=== PATIENT | male | born 1990 | race Caucasian/White ===

== ENCOUNTER 2017-11-10 16:34 | Inpatient (IN) ==
[2017-11-10] MEDS ORDERED: ONDANSETRON 4 MG/2 ML VIAL IV PRN (17:47)
[2017-11-10] MEDS ORDERED: TEMAZEPAM 15 MG CAPSULE PO PRN (17:47)
[2017-11-10] MEDS ORDERED: diphenhydrAMINE CAP 25 MG CAPSULE PO PRN (17:47)
[2017-11-10] MEDS: ceFAZolin 1,000 MG in SYRINGE 1 EACH IV SCH (19:01)
[2017-11-10] MEDS: CIPROFLOXACIN INJ 400 MG in PREMIX 1 EACH IV SCH (19:06)
[2017-11-10] MEDS: IBUPROFEN 400 MG TABLET PO PRN (19:07)
[2017-11-10] MEDS: ACETAMINOPHEN 325 MG TABLET PO PRN (20:32)
[2017-11-11] MEDS: ACETAMINOPHEN 325 MG TABLET PO PRN ×3 (01:00→22:39)
[2017-11-11] MEDS: ceFAZolin 1,000 MG in SYRINGE 1 EACH IV SCH ×3 (03:02→18:20)
[2017-11-11] MEDS: CIPROFLOXACIN INJ 400 MG in PREMIX 1 EACH IV SCH ×2 (06:35→18:25)
[2017-11-11] MEDS: IBUPROFEN 400 MG TABLET PO PRN (10:05)
[2017-11-12] MEDS: ceFAZolin 1,000 MG in SYRINGE 1 EACH IV SCH ×3 (02:10→17:57)
[2017-11-12] MEDS: CIPROFLOXACIN INJ 400 MG in PREMIX 1 EACH IV SCH ×2 (05:51→18:00)
[2017-11-12] MEDS: IBUPROFEN 400 MG TABLET PO PRN (10:41)
[2017-11-13] MEDS: ceFAZolin 1,000 MG in SYRINGE 1 EACH IV SCH ×2 (02:24→10:56)
[2017-11-13] MEDS: CIPROFLOXACIN INJ 400 MG in PREMIX 1 EACH IV SCH (05:41)
[2017-11-13 13:09] VITALS: BP 140/80
== END 2017-11-13 14:58 | disposition home or self-care (01) | DRG 558 ==
LOC: N.2W 16:58 → N.3E 17:40
PROVIDERS: ADMIT Orthopaedic Surgery; ATTEND Orthopaedic Surgery